=== PATIENT | male | born 1945 | race Caucasian/White ===

== ENCOUNTER 2018-03-27 11:58 | Observation (INO) ==
--- NOTE | 2018-03-27 12:12 | Emergency Department Note ---
Neuro HPI - General Chief Complaint: Stroke Symptoms Stated Complaint: stroke symptoms Time Seen by Provider: 03/27/18 12:10 Source: patient Mode of arrival: ambulatory Limitations: no limitations - History of Present Illness HPI Narrative: 30 minutes ago this patient began to experience a little numbness and incoordination in his left arm and hand. He apparently does take Coumadin for atrial fibrillation although he is in normal sinus rhythm at this time. He has had a very slight left-sided headache which kind of sound sharp like and pinprick lately and comes and goes. He has never had a stroke but is aware of the risk of stroke with atrial fibrillation. On Anticoagulants: Yes - Related Data Home Medications: Home Medications Medication Instructions Recorded Confirmed Cod Liver Oil DAILY 10/17/14 08/27/16 Magnesium Amino Acid Chelate 100 mg PO DAILY 10/17/14 08/27/16 [Magnesium] lactobacillus combination no.9 4 4,000 mmu cells PO QDAY 10/04/15 08/27/16 billion cell capsule bisoprolol fumarate 5 mg tablet 5 mg PO QDAY 03/18/16 08/27/16 Previous Rx's Medication Instructions Recorded ciprofloxacin 500 mg tablet 500 mg PO Q12H #14 tab 08/27/16 hydrochlorothiazide 12.5 mg capsule 12.5 mg PO QDAY #90 cap 11/11/17 hydrocodone 7.5 mg-acetaminophen 1 tab PO QDAY PRN #30 tab 12/09/17 325 mg tablet doxazosin 2 mg tablet 4 mg PO QDAY #180 tab 12/21/17 warfarin 5 mg tablet See Label Instructions .ROUTE 03/17/18 .COMPLEX #100 tab Allergies/Adverse Reactions: Allergies Allergy/AdvReac Type Severity Reaction Status Date / Time Hxllwov-Bxq-Mct Reductase AdvReac Intermediate extreme Verified 03/27/18 12:05 Inhibitor fatigue Iodinated Contrast- Oral and AdvReac Unknown Unknown Verified 03/27/18 12:05 IV Dye [Iodinated Contrast Media - IV Dye] lisinopril AdvReac Unknown Cough Verified 03/27/18 12:05 Review of Systems All systems ED: reviewed and negative except as stated. Past Medical History - Past Medical History [facility] Narrative: Medical History Drug-induced pruritus (Chronic) Vitamin D deficiency (Chronic 10/14/13) History of skin cancer (Chronic) Benign prostatic hypertrophy with lower urinary tract symptoms (LUTS) (Chronic) Palpitations (Chronic) Pain in thoracic spine (Chronic) Osteoarthrosis (Chronic) Hypertension, essential (Chronic) Hernia, inguinal (Chronic 10/31/13) Esophageal reflux (Chronic) Elevated PSA (Chronic 10/31/13) Depression (Chronic) Coronary artery disease (Chronic) Personal history of colonic polyps (Chronic) Bundle branch block (Chronic) Anxiety disorder (Chronic) C. difficile diarrhea (Chronic) Coronary atherosclerosis of [place] coronary artery (Chronic) Benign essential hypertension (Chronic) Mixed hyperlipidemia (Chronic) Benign hypertrophy of prostate (Chronic) Atrial fibrillation (Chronic) Spider bite (Resolved) Past Surgical History S/P ablation of atrial fibrillation (Chronic) History of colonoscopy (Chronic) History of cardiac catheterization (Chronic 12/17/06) History of coronary artery stent placement (Chronic 12/17/06) Status post wrist surgery (Chronic) Family History Father Alcohol abuse Mother Congestive heart failure Cerebrovascular accident (CVA) Cardiac disease Hyperlipidemia Essential hypertension Migraine Osteoporosis Medical history: Reports: atrial fibrillation - Social History smoking status: Never smoker Physical Exam Limitations: no limitations General appearance: alert Head: atraumatic Eye: Present: normal appearance ENT: normal exam Neck: Present: normal inspection Chest: Present: normal inspection Respiratory: Present: normal lung sounds bilaterally Cardiovascular: Present: regular rate, normal rhythm, normal heart sounds Abdominal: Present: soft. Absent: distention, tenderness Neurological: Present: alert Cranial nerves: facial palsy (VII): Normal Cerebellar function: finger to nose: Abnormal Left Motor strength - LUE: 5/5 Motor strength - RUE: 5/5 Motor strength - LLE: 5/5 Motor strength - RLE: 5/5 Upper motor neuron exam: pronator drift: Present on left Psychiatric: Present: normal affect Skin: Present: warm, dry Course Vital Signs Temperature 96.9 F L 03/27/18 12:01 Pulse Rate 72 03/27/18 12:01 Respiratory Rate 12 03/27/18 12:01 Blood Pressure 138/109 03/27/18 12:01 Pulse Oximetry (%) 98 03/27/18 12:01 Temperature 96.9 F L 03/27/18 12:01 Pulse Rate 56 L 03/27/18 13:06 Respiratory Rate 11 L 03/27/18 13:16 Blood Pressure 181/76 03/27/18 13:16 Pulse Oximetry (%) 100 03/27/18 13:06 Neuro Symptoms/Deficit - MDM Narrative Medical decision making narrative: CT of head was negative. His INR was 2.4 which makes him not a candidate for TPA. He also has an allergy to iodine contrast. I discussed this case with the stroke neurologist who felt that we would probably not find any sort of large vessel occlusion on CTA and he thinks it would be safer to admit him and do an MRA later. I discussed the case with Dr. Meadows he will be admitted to the hospital. - Lab Data Lab results reviewed: Yes I reviewed the patient's lab results. Result diagrams: 03/27/18 12:08 03/27/18 12:08 Lab Results 03/27/18 03/27/18 03/27/18 Range/Units 12:08 12:08 12:08 WBC 4.8 (4.5-11.0) K/mcL RBC 4.33 L (4.50-5.90) M/mcL Hgb 13.6 (13.5-16.5) g/dL Hct 41.0 (41.0-55.0) % POC Hct 40.0 L (41.0-55.0) % MCV 94.7 (80.0-100.0) fL MCH 31.4 (26.0-34.0) pg MCHC 33.2 (31.0-36.0) g/dL RDW 12.4 (11.5-14.5) % Plt Count 198 (140-440) K/mcL MPV 6.9 L (7.4-10.4) fL Gran % 58.2 (38.0-78.0) % Lymph % (Auto) 32.6 (15.5-49.0) % [place] % (Auto) 5.5 (1.0-12.0) % Eos % (Auto) 2.9 (0.0-7.0) % Baso % (Auto) 0.8 (0.0-2.0) % Gran # 2.8 (1.8-8.0) K/mcL Lymph # (Auto) 1.6 (1.5-4.8) K/mcL [place] # (Auto) 0.3 (0.1-0.9) K/mcL Eos # (Auto) 0.1 (0.0-0.7) K/mcL Baso # (Auto) 0 (0.0-0.3) K/mcL POC PT (11.9-14.5) sec POC INR (0.9-1.2) POC Sodium 142 (133-145) mmol/L Sodium 140 (133-145) mmol/L POC Potassium 3.3 (3.3-5.1) mmol/L Potassium 3.3 (3.3-5.1) mmol/L POC Chloride 99 (96-108) mmol/L Chloride 101 (96-108) mmol/L Carbon Dioxide 27 (22-30) mmol/L POC Total CO2 28 (22-30) mmol/L Anion Gap 12.0 (8-16) POC BUN 21 (8-23) mg/dl BUN 18 (8-23) mg/dl Creatinine 1.1 (0.7-1.2) mg/dl POC Creatinine 1.0 (0.7-1.2) mg/dl GFR Calculation 66 Glucose 153 H (70-105) mg/dL POC Glucose 153 H (70-105) mg/dL Calcium 9.6 (8.6-10.4) mg/dl POC WB Ioniz Calcium 1.24 (1.16-1.32) mmol/L Total Bilirubin 0.4 (0.0-1.0) mg/dL AST 17 (0-37) U/l ALT 16 (0-40) U/l Alkaline Phosphatase 66 (39-117) U/L Troponin T < 0.01 (0-0.03) ng/ml Total Protein 7.4 (5.9-8.4) gm/dL Albumin 4.3 (3.2-5.2) gm/dL Globulin 3.1 (2.2-3.7) gm/dL Albumin/Globulin Ratio 1.4 (1.0-2.3) 03/27/18 Range/Units 12:48 WBC (4.5-11.0) K/mcL RBC (4.50-5.90) M/mcL Hgb (13.5-16.5) g/dL Hct (41.0-55.0) % POC Hct (41.0-55.0) % MCV (80.0-100.0) fL MCH (26.0-34.0) pg MCHC (31.0-36.0) g/dL RDW (11.5-14.5) % Plt Count (140-440) K/mcL MPV (7.4-10.4) fL Gran % (38.0-78.0) % Lymph % (Auto) (15.5-49.0) % [place] % (Auto) (1.0-12.0) % Eos % (Auto) (0.0-7.0) % Baso % (Auto) (0.0-2.0) % Gran # (1.8-8.0) K/mcL Lymph # (Auto) (1.5-4.8) K/mcL [place] # (Auto) (0.1-0.9) K/mcL Eos # (Auto) (0.0-0.7) K/mcL Baso # (Auto) (0.0-0.3) K/mcL POC PT 27.8 H (11.9-14.5) sec POC INR 2.4 H (0.9-1.2) POC Sodium (133-145) mmol/L Sodium (133-145) mmol/L POC Potassium (3.3-5.1) mmol/L Potassium (3.3-5.1) mmol/L POC Chloride (96-108) mmol/L Chloride (96-108) mmol/L Carbon Dioxide (22-30) mmol/L POC Total CO2 (22-30) mmol/L Anion Gap (8-16) POC BUN (8-23) mg/dl BUN (8-23) mg/dl Creatinine (0.7-1.2) mg/dl POC Creatinine (0.7-1.2) mg/dl GFR Calculation Glucose (70-105) mg/dL POC Glucose (70-105) mg/dL Calcium (8.6-10.4) mg/dl POC WB Ioniz Calcium (1.16-1.32) mmol/L Total Bilirubin (0.0-1.0) mg/dL AST (0-37) U/l ALT (0-40) U/l Alkaline Phosphatase (39-117) U/L Troponin T (0-0.03) ng/ml Total Protein (5.9-8.4) gm/dL Albumin (3.2-5.2) gm/dL Globulin (2.2-3.7) gm/dL Albumin/Globulin Ratio (1.0-2.3) - Radiology Data Radiology results reviewed: Yes I reviewed the patient's radiology results. Disposition Pt seen by [employer] NET SOFTWARE DEVELOPER/PA only: No Clinical Impression: CVA (cerebral vascular accident) Disposition: Xfer As Inpt ([facility]) Condition: Good Referrals: Epi Mary PA-C [Primary Care Provider] - Time of Disposition: 13:33
--- NOTE | 2018-03-27 12:19 | Cat Scan Report ---
CLINICAL INFORMATION: Left-sided weakness COMPARISON: None. TECHNIQUE: Axial noncontrast-enhanced images through the brain. FINDINGS: No acute intracranial hemorrhage. No focal intra-axial hematoma. No attenuation abnormality or localized mass effect. No midline shift. Brain volume is within normal limits for age. No acute hydrocephalus. Brainstem and cerebellum are negative. No extra-axial, intracranial abnormality. No subdural hematoma. No subarachnoid hemorrhage. No calvarial lesions. No lytic lesion. No fracture. Temporal bones are negative. IMPRESSION: Negative noncontrast enhanced brain CT scan The exam was performed using radiation dose optimization techniques including, but not limited to, automated exposure control, adjustment of the mA and/or kV according to patient size and use of iterative reconstruction technique. Interpreted and Authenticated by: Rancho Oliveros 03/27/18
[2018-03-27 12:40] LABS: Basophils # (Auto) 0 K/mcL (0.0-0.3); Basophils % (Auto) 0.8 % (0.0-2.0); Eosinophils # (Auto) 0.1 K/mcL (0.0-0.7); Eosinophils % (Auto) 2.9 % (0.0-7.0); Granulocytes % (Auto) 58.2 % (38.0-78.0); Lymphocytes # (Auto) 1.6 K/mcL (1.5-4.8); Lymphocytes % (Auto) 32.6 % (15.5-49.0); Mean Cell Volume 94.7 fL (80.0-100.0); Mean Corpuscular HGB Conc 33.2 g/dL (31.0-36.0); Monocytes # (Auto) 0.3 K/mcL (0.1-0.9); Monocytes % (Auto) 5.5 % (1.0-12.0); Platelet Count 198 K/mcL (140-440); RBC 4.33 M/mcL (4.50-5.90); Red Cell Distribution Width 12.4 % (11.5-14.5)
[2018-03-27 13:05] LABS: ALT/SGPT 16 U/l (0-40); Albumin 4.3 gm/dL (3.2-5.2); Albumin/Globulin Ratio 1.4 (1.0-2.3); Alkaline Phosphatase 66 U/L (39-117); Blood Urea Nitrogen 18 mg/dl (8-23)
[2018-03-27] MEDS ORDERED: LABETALOL HCL 20 MG/4 ML SYRINGE IV ONE (13:10)
[2018-03-27 13:54] LABS: Appearance,Urine CLEAR; Bacteria,Urine 0 /hpf (0); Bilirubin,Urine NEG (NEG); Color,Urine STRAW; Glucose,Urine (UA) NEGATIVE (NEG); Leukocyte Esterase,Urine NEG /uL (NEG); Protein,Urine NEG (NEG); Urine Blood 0.2 mg/dL (<0.03); Urine RBC 17 /hpf (0-1); Urine Squamous Epithelial Cell 0 /hpf (0-4); Urine WBC 1 /hpf (0-4); Urobilinogen,Urine NEG (NEG)
--- NOTE | 2018-03-27 14:35 | Internal Med History&Physical ---
Medical - H&P: HPI Patient information: Note initiated : 03/27/18 at 2:30 pm Service Date, if different from initiated Date: [] Patient: Jesus Victor 72 y/o M admitted on for stroke symptoms. Chief Complaint: [] History of present illness: Mr. Victor is a 72 year old M Presents to the ER with abnormal feeling in his left arm. Patient woke up around 7 he says at that time he noticed that his arm felt strange. He says it felt like when a limb is asleep. 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 His left leg was fine no issues there. He denied any numbness or tingling anywhere else in his body. Denies any weakness anywhere else in his body. He denied speech abnormalities or visual numbness or drooping or slurring. When asked about vision changes he did note that first thing in the morning when he looked up in the left upper quadrant that there seemed to be some distortion which does not appear to be present at this time. Denies gait abnormalities. Patient is on warfarin for atrial fibrillation. He does have a history of CAD with a stent in 2007, he is intolerant of statins, he is on caudal currently. In the ER is found to be hypertensive, CT brain was unremarkable for acute pathology. EKG with sinus rhythm Case was discussed with the stroke neurologist Baldev. Recommendations were no TPA no transfer and to admit and obtain MRA. Review of Systems: Pertinent positives as above. Denies headache/fever/chills/nausea/vomiting/ chest or abdominal pain/cough/dyspnea/diarrhea. Remaining 10 point review of systems reviewed negative Medical - H&P: PMH Medical history: Medical History Drug-induced pruritus (Chronic) Vitamin D deficiency (Chronic 10/14/13) History of skin cancer (Chronic) Benign prostatic hypertrophy with lower urinary tract symptoms (LUTS) (Chronic) Palpitations (Chronic) Pain in thoracic spine (Chronic) Osteoarthrosis (Chronic) Hypertension, essential (Chronic) Hernia, inguinal (Chronic 10/31/13) Esophageal reflux (Chronic) Elevated PSA (Chronic 10/31/13) Depression (Chronic) Coronary artery disease (Chronic) Personal history of colonic polyps (Chronic) Bundle branch block (Chronic) Anxiety disorder (Chronic) C. difficile diarrhea (Chronic) Coronary atherosclerosis of [place] coronary artery (Chronic) Benign essential hypertension (Chronic) Mixed hyperlipidemia (Chronic) Benign hypertrophy of prostate (Chronic) Atrial fibrillation (Chronic) Spider bite (Resolved) Past Surgical History S/P ablation of atrial fibrillation (Chronic) History of colonoscopy (Chronic) History of cardiac catheterization (Chronic 12/17/06) History of coronary artery stent placement (Chronic 12/17/06) Status post wrist surgery (Chronic) Family History Father Alcohol abuse Mother Congestive heart failure Cerebrovascular accident (CVA) Cardiac disease Hyperlipidemia Essential hypertension Migraine Osteoporosis - Social History smoking status: Never smoker Rare alcohol lives at home with family 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 work 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 [employer] Medical - H&P: Meds Home Medications Medication Instructions Recorded Confirmed Type bisoprolol fumarate 5 mg tablet 5 mg PO QDAY 03/18/16 03/27/18 History hydrocodone 7.5 mg-acetaminophen 1 tab PO QDAY PRN #30 tab 12/09/17 03/27/18 Rx 325 mg tablet warfarin 5 mg tablet See Label Instructions .ROUTE 03/17/18 03/27/18 Rx .COMPLEX #100 tab Doxazosin Mesylate [Cardura] 8 mg PO QDAY 03/27/18 03/27/18 History Allergies Allergy/AdvReac Type Severity Reaction Status Date / Time Qtqqact-Qmi-Szx Reductase AdvReac Intermediate extreme Verified 03/27/18 12:05 Inhibitor fatigue Iodinated Contrast- Oral and AdvReac Unknown Unknown Verified 03/27/18 12:05 IV Dye [Iodinated Contrast Media - IV Dye] lisinopril AdvReac Unknown Cough Verified 03/27/18 12:05 Medical - H&P: Exam - Constitutional Vitals: Temp Pulse Resp BP Pulse Ox 96.9 F L 52 L 13 177/81 97 03/27/18 12:01 03/27/18 14:16 03/27/18 14:16 03/27/18 14:16 03/27/18 14:16 Exam: General: Alert, Awake, No acute Distress Eyes/N/T: EOMI, PEERL, Head/Neck: neck supple, normocephalic atraumatic CV: RRR, No murmurs, normal s1/s2 Pulm: Clear b/l, no wheezing/rhonchi/rales Abd: soft, nontender, +BS x4 Ext: no clubbing/cyanosis/edema Neuro: A&O, sensations intact b/l, strength appears symmetrical b/l upper/ lower. dysmetria of left UE. left pronator drift Skin: warm/dry Medical - H&P: Reslt - Labs CBC & Chem 7: 03/27/18 12:08 03/27/18 12:08 Labs: Short CBC 03/27/18 Range/Units 12:08 WBC 4.8 (4.5-11.0) K/mcL Hgb 13.6 (13.5-16.5) g/dL Hct 41.0 (41.0-55.0) % Plt Count 198 (140-440) K/mcL BMP 03/27/18 12:08 Sodium 140 Potassium 3.3 Chloride 101 Carbon Dioxide 27 BUN 18 Creatinine 1.1 Glucose 153 H Calcium 9.6 Cardiac Enzymes 03/27/18 Range/Units 12:08 Troponin T < 0.01 (0-0.03) ng/ml Liver Function 03/27/18 Range/Units 12:08 Total Bilirubin 0.4 (0.0-1.0) mg/dL AST 17 (0-37) U/l ALT 16 (0-40) U/l Alkaline Phosphatase 66 (39-117) U/L Albumin 4.3 (3.2-5.2) gm/dL Urine 03/27/18 Range/Units 13:07 Urine Color Straw Urine Appearance Clear Urine pH 6.0 (5.0-9.0) Ur Specific [place] 1.010 (1.000-1.035) Urine Protein Neg (NEG) mg/dL Urine Glucose (UA) Negative (NEG) mg/dL - Impressions EKG with normal sinus rhythm CT brain no acute abnormalities Medical - H&P: A/P - Narrative A/P Narrative: A: *Stroke-like symptoms w/LUE dysmetria concerning for cerebellar CVA -ABCD=4 *PAF: s/p ablation -on warfarin and BB *CAD w/stent: intolerant of statins, on fish oil *HTN * P: -Permissive hypertension first 24 hours -IV fluid hydration -Aspirin/Fibrate -lipid panel -MRA head/neck & Echo pending -pt/ot/st - -ppx: wafarin per pharm
[2018-03-27] MEDS ORDERED: ONDANSETRON 4 MG/2 ML VIAL IV PRN (15:41)
[2018-03-27] MEDS ORDERED: hydrALAZINE 20 MG/ML VIAL IV PRN (15:41)
[2018-03-27] MEDS ORDERED: PROMETHAZINE 25 MG TABLET PO PRN (15:41)
[2018-03-27] MEDS ORDERED: ASPIRIN 325 MG ENTERIC COATED TABLET PO ONE (15:41)
[2018-03-27] MEDS ORDERED: WARFARIN 5 MG TABLET PO SCH (15:41)
[2018-03-27] MEDS ORDERED: PROCHLORPERAZINE 25 MG SUPP.RECT PR PRN (15:41)
[2018-03-27] MEDS ORDERED: HYDROCODONE/APAP 7.5/325MG TABLET PO PRN (15:48)
[2018-03-27 16:07] LABS: HDL Cholesterol 58 mg/dl (>40); LDL Cholesterol,Calculated 157 mg/dl (SEE CHART)
[2018-03-27] MEDS ORDERED: GADOBENATE DIMEGLUMINE 20 ML/VIAL IV ONE (16:18)
--- NOTE | 2018-03-27 16:35 | Magnetic Resonance Report ---
CLINICAL INFORMATION: Left arm weakness TECHNIQUE: Diffusion weighted axial images. Routine MRA of the [place] COMPARISON: Brain CT scan dated 03/27/2018 FINDINGS: There are foci of restricted diffusion in the right premotor gyrus and subcortical white matter as well as the right centrum semiovale. This is in the posterior right frontal lobe, anterior to the central sulcus. There is associated ADC abnormality consistent with acute stroke. Distal cervical, petrous, cavernous, supraclinoid segments of the right internal carotid artery are normal. A1 segment of the right anterior cerebral artery and M1 segment of the right middle cerebral artery are normal. No detectable intracranial stenosis or occluded branch. Distal cervical, petrous, cavernous, supraclinoid segments of the left internal carotid artery are normal. A1 segment of the left anterior cerebral artery and M1 segment of the left middle cerebral artery are normal. Intracranial vertebral arteries and basilar artery are normal. Posterior cerebral arteries and superior cerebellar arteries are negative. Right posterior communicating artery is a large vessel. Left posterior communicating artery is not visualized. No intracranial aneurysm or arteriovenous malformation Diffusion weighted images are consistent with small embolic infarctions. Source of emboli is not certain based upon MRA. Cardiac source of emboli should be excluded and echocardiography is recommended. IMPRESSION: Negative MRA of the [place] Interpreted and Authenticated by: Rancho Oliveros 03/27/18
--- NOTE | 2018-03-27 16:44 | Magnetic Resonance Report ---
CLINICAL INFORMATION: Right-sided embolic stroke TECHNIQUE: Postcontrast enhanced MRA of the cervical great vessels. COMPARISON: None. FINDINGS: Origin of the left subclavian artery, left vertebral artery, left common carotid artery, innominate artery, right common carotid artery, right subclavian artery, right vertebral artery are normal. No origin stenosis. Common carotid arteries and cervical internal carotid arteries are negative. No significant luminal irregularity. No intraluminal filling defects. No stenosis. Cervical vertebral arteries are negative. No stenosis or occlusion IMPRESSION: Negative carotid MRA Interpreted and Authenticated by: Rancho Oliveros 03/27/18
[2018-03-27] MEDS: 0.9 % SODIUM CHLORIDE 1,000 ML IV SCH (17:55)
[2018-03-27] MEDS: FAMOTIDINE 20 MG TABLET PO SCH (20:49)
[2018-03-27] MEDS: 0.9 % SODIUM CHLORIDE 10 ML SYRINGE IV SCH (20:59)
[2018-03-28] MEDS: 0.9 % SODIUM CHLORIDE 1,000 ML IV SCH (03:42)
[2018-03-28] MEDS: 0.9 % SODIUM CHLORIDE 10 ML SYRINGE IV SCH ×3 (05:12→20:41)
[2018-03-28 06:15] LABS: ALT/SGPT 13 U/l (0-40); Albumin 3.7 gm/dL (3.2-5.2); Albumin/Globulin Ratio 1.5 (1.0-2.3); Alkaline Phosphatase 53 U/L (39-117); Bilirubin,Direct < 0.2 mg/dL (0.0-0.3); Blood Urea Nitrogen 17 mg/dl (8-23); Gamma Glutamyl Transpeptidase 6 U/L (8-61); Uric Acid 6.1 mg/dL (2.5-8.0)
--- NOTE | 2018-03-28 06:55 | Internal Med Progress Note ---
Medical - PN: Subj Patient information: Note initiated : 03/28/18 at 6:50 am Service Date, if different from initiated Date: [] Patient: Jesus Victor 72 y/o M admitted on 03/27/18 for stroke symptoms. Chief Complaint: [] Interval history: Mr. Victor is a 72 year old M Presents to the ER with abnormal feeling in his left arm. Patient woke up around 7 he says at that time he noticed that his arm felt strange. He says it felt like when a limb is asleep. 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 His left leg was fine no issues there. He denied any numbness or tingling anywhere else in his body. Denies any weakness anywhere else in his body. He denied speech abnormalities or visual numbness or drooping or slurring. When asked about vision changes he did note that first thing in the morning when he looked up in the left upper quadrant that there seemed to be some distortion which does not appear to be present at this time. Denies gait abnormalities. Patient is on warfarin for atrial fibrillation. He does have a history of CAD with a stent in 2007, he is intolerant of statins, he is on caudal currently. In the ER is found to be hypertensive, CT brain was unremarkable for acute pathology. EKG with sinus rhythm Case was discussed with the stroke neurologist Baldev. Recommendations were no TPA no transfer and to admit and obtain MRA. 03/27 Had a little bit of a headache earlier. Feels like his coordination in his left arm is improving. No new complaints, no overnight events. Review of Systems: denies fever/chills/nausea/vomiting/chest or abdominal pain/cough/dyspnea/ diarrhea. Otherwise see above. - Constitutional Vitals: Vital Signs Temp Pulse Resp BP Pulse Ox 98.6 F 52 L 14 159/88 98 03/27/18 15:43 03/27/18 15:39 03/27/18 15:43 03/28/18 04:00 03/27/18 15:43 Period Temp Pulse Resp BP Sys/Jaquez Pulse Ox Last 24 Hr 96.9 F-98.6 F 52-72 - 138-211/76-109 93-100 Intake and Output 03/27/18 03/28/1818 21:59 05:59 13:59 Intake Total 360 / 360 1000 / 1000 Output Total 400 / 400 1300 / 1300 Balance -40 / -40 -300 / -300 Weight 95.254 kg Intake & Output: Intake & Output 03/27/18 03/28/18 03/28/18 21:59 05:59 13:59 Intake Total 360 / 360 1000 / 1000 Output Total 400 / 400 1300 / 1300 Balance -40 / -40 -300 / -300 Weight 95.254 kg Intake: IV 1000 / 1000 Sodium Chloride 0.9% 1,000 ml @ 1000 / 1000 100 mls/hr IV .Q10H YOANNA Rx#: [id number] Oral 360 / 360 Output: Void Amount 400 / 400 1300 / 1300 Other: Meal Dinner Percent of Meal Consumed 100% Urine Appearance Clear Urine Color Dark Yellow Exam: General: Alert, Awake, No acute Distress Eyes/N/T: EOMI, Head/Neck: neck supple, normocephalic atraumatic CV: RRR, No murmurs, normal s1/s2 Pulm: Clear b/l, no wheezing/rhonchi/rales Abd: soft, nontender, +BS x4 Ext: no clubbing/cyanosis/edema Neuro: A&O, sensations intact b/l, strength appears symmetrical b/l upper/ lower. dysmetria of left UE. Skin: warm/dry Medical - PN: Obj Da - Labs CBC & Chem 7: 03/27/18 12:08 03/28/18 04:37 Labs: Abnormal Lab Results 03/28/18 03/28/18 03/27/18 04:37 04:36 15:41 RBC POC Hct MPV POC PT PT 25.6 H POC INR INR 2.4 H APTT Anion Gap 7.0 L Glucose POC Glucose Phosphorus 2.6 L GGT 6 L Triglycerides 161 H Cholesterol 247 H LDL Cholesterol, Calc 157 H Non-HDL Cholesterol 189 H Urine Occult Blood Urine RBC 03/27/18 03/27/18 03/27/18 13:07 12:48 12:08 RBC POC Hct 40.0 L MPV POC PT 27.8 H PT POC INR 2.4 H INR APTT 45 H Anion Gap Glucose 153 H POC Glucose 153 H Phosphorus GGT Triglycerides Cholesterol LDL Cholesterol, Calc Non-HDL Cholesterol Urine Occult Blood 0.2 A Urine RBC 17 H 12/22/18 12:08 RBC 4.33 L POC Hct MPV 6.9 L POC PT PT POC INR INR APTT Anion Gap Glucose POC Glucose Phosphorus GGT Triglycerides Cholesterol LDL Cholesterol, Calc Non-HDL Cholesterol Urine Occult Blood Urine RBC Meds: Medications Hydrocodone Bitart/Acetaminophen ([place] 7.5/325mg) 1 tab PO DAILYP PRN PRN Reason: Pain Aspirin (Ecotrin) 81 mg PO DAILY [facility] Famotidine (Pepcid) 20 mg PO BID [facility] Last Admin: 03/27/18 20:49 Dose: 20 mg Fenofibrate (Antara) 129 mg PO DAILY [facility] Hydralazine HCl (Apresoline) 0 mg IV Q3HP PRN PRN Reason: Hypertension Sodium Chloride (Sodium Chloride 0.9%) 1,000 mls @ 100 mls/hr IV .Q10H [facility] Stop: 03/28/18 11:40 Last Admin: 03/28/18 03:42 Dose: 100 mls/hr Ondansetron HCl (Zofran) 4 mg IV Q4HP PRN PRN Reason: Nausea And Vomiting Prochlorperazine Maleate (Compazine) 12.5 mg NE Q12HP PRN PRN Reason: Nausea And Vomiting Promethazine HCl (Phenergan) 12.5 mg PO Q6HP PRN PRN Reason: Nausea And Vomiting Sodium Chloride (Saline Flush) 10 ml IV Q8 [facility] Last Admin: 03/28/18 05:12 Dose: Not Given Medical - PN: A/P - Time Spent With Patient Total time spent is greater than 50% in coordination of care (as documented) at patient's floor/unit and/or counseling patient: - Narrative A/P Narrative: A: *CVA (small emboli right posterior of frontal lobe) w/LUE dysmetria: -ABCD=4 *PAF: s/p ablation -on warfarin and BB *CAD w/stent: intolerant of statins, on fish oil *HTN: *BPH: on doxazosin P: -Permissive hypertension first 24 hours -Discussed the case with the stroke neurologist Dr. Montes who recommended switching warfarin to a NOAC, such as Apixaban. Will transition to Apixaban. - Echo pending -fibrate -pt/ot/st -start home BB in AM -ppx: transition to eliquis when INR closer to 2 Medical - PN: Qual - Stroke Onset of Symptoms Date: 03/27/18 Onset of Symptoms Time: 08:00 Symptom Onset Unknown: No - VTE Deep Vein Thrombosis/Pulmonary Embolism Present on Admission: No
[2018-03-28] MEDS: FAMOTIDINE 20 MG TABLET PO SCH ×2 (08:54→20:41)
[2018-03-28] MEDS: FENOFIBRATE 43 MG CAPSULE PO SCH (08:55)
[2018-03-28] MEDS ORDERED: ASPIRIN 325 MG ENTERIC COATED TABLET PO SCH (09:00)
[2018-03-28] MEDS ORDERED: ASPIRIN 81 MG TAB.CHEW PO SCH (09:00)
[2018-03-28] MEDS ORDERED: LABETALOL 5 MG/ML ML IV PRN (10:00)
[2018-03-28] MEDS ORDERED: DOXAZOSIN 4 MG TABLET PO SCH ×2 (12:48→13:00)
[2018-03-28] MEDS: DOXAZOSIN 4 MG TABLET PO SCH (20:40)
[2018-03-29] MEDS: DOXAZOSIN 4 MG TABLET PO SCH (08:07)
[2018-03-29] MEDS: 0.9 % SODIUM CHLORIDE 10 ML SYRINGE IV SCH (08:08)
[2018-03-29] MEDS: FENOFIBRATE 43 MG CAPSULE PO SCH (08:08)
[2018-03-29] MEDS: FAMOTIDINE 20 MG TABLET PO SCH (08:08)
[2018-03-29 08:54] LABS: ALT/SGPT 13 U/l (0-40); Albumin 3.9 gm/dL (3.2-5.2); Albumin/Globulin Ratio 1.4 (1.0-2.3); Alkaline Phosphatase 61 U/L (39-117); Bilirubin,Direct < 0.2 mg/dL (0.0-0.3); Blood Urea Nitrogen 19 mg/dl (8-23); Gamma Glutamyl Transpeptidase 7 U/L (8-61); Uric Acid 6.2 mg/dL (2.5-8.0)
[2018-03-29] MEDS ORDERED: DOXAZOSIN 4 MG TABLET PO SCH (09:00)
[2018-03-29] MEDS ORDERED: WARFARIN 10 MG TABLET PO ONE (11:32)
--- NOTE | 2018-03-29 11:39 | Discharge Summary ---
Medical - DS: Prov Patient information: Note initiated : 03/29/18 at 11:35 am Service Date, if different from initiated Date: [] Patient: Jesus Victor 72 y/o M admitted on 03/27/18 for stroke symptoms. Chief Complaint: [] Date of admission: 03/27/18 15:39 Discharge date: 03/29/18 Primary care physician: Epi Mary Consults: 03/27/18 Consult to Physician [CONS] Stat Comment: Consulting Provider: Jann Meadows Reason For Exam: Physician to Consult Discharging clinician: Carlito Alegre Medical - DS: Meds - Discharge Medications Prescriptions: Atorvastatin [Lipitor] 20 mg PO HS #30 tablet Warfarin [Coumadin] See Label Instructions PO .COMPLEX #60 tab Active and Home Medications: Home Medications bisoprolol fumarate 5 mg tablet 5 mg PO QDAY 03/18/16 [History Confirmed Last Taken Unknown] hydrocodone 7.5 mg-acetaminophen 325 mg tablet 1 tab PO QDAY PRN #30 tab [Rx Confirmed 03/27/18 Last Taken Unknown] warfarin 5 mg tablet See Label Instructions .ROUTE .COMPLEX #100 tab 03/17/18 [ Rx Confirmed 03/27/18 Last Taken Unknown] Doxazosin Mesylate [Cardura] 8 mg PO QDAY 03/27/18 [History Confirmed 03/27/18 Last Taken Unknown] Apixaban [Eliquis] 5 mg PO BID #60 tab 03/29/18 [Rx Last Taken Unknown] Medical - DS: Hosp Hospital course: Mr. Victor is a 72 year old M who presented to the ER with abnormal feeling in his left arm. Patient woke up around 7 he says at that time he noticed that his arm felt strange. He says it felt like when a limb is asleep. 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 His left leg was fine no issues there. He denied any numbness or tingling anywhere else in his body. Denies any weakness anywhere else in his body. He denied speech abnormalities or visual numbness or drooping or slurring. When asked about vision changes he did note that first thing in the morning when he looked up in the left upper quadrant that there seemed to be some distortion which does not appear to be present at this time. Denies gait abnormalities. Patient is on warfarin for atrial fibrillation. He does have a history of CAD with a stent in 2007, he is intolerant of statins as per him In the ER is found to be hypertensive, CT brain was unremarkable for acute pathology. EKG with sinus rhythm Case was discussed with the stroke neurologist Baldev. Recommendations were no TPA no transfer and to admit and obtain MRA. CVA- Patient admitted to the hospital for management of CVA, CT head was negative, MRA head and neck negative Echo done shows normal left ventricular size and function. The patient has Afib and is on Coumadin , INR was therapeutic on presentation. The case was discussed with the stroke neurologist Dr. Montes who recommended switching warfarin to a NOAC, such as Apixaban. The patient notes that he will not be able to afford apixaban at this time, we verified that it would cost him around 400 dollars a month to get this medication. He can get this medication at a much cheaper rate from the [place] [facility]. The patient will be switched back to Coumadin for now, till he is able to get a prescription for Eliquis from the [place] center, I have advised him to follow up with his PCP for obtaining and coordinating the prescription. The patient at the time of discharge was stable, tolerating po diet well, and ambulating by self, to my exam had no motor neurological deficits. The patient cholesterol his high, and he was advised to start statin, he has the medications with him. He felt that these drugs caused aches, he is willing to try a lower dosage or alternate day therapy to see if this helps. Discharge diagnosis: CVA - Time Spent with Patient Total time spent providing and/or coordinating discharge services: Greater than 30 minutes Medical - DS: Exam - Constitutional Vitals: Vital Signs Temp Pulse Resp BP BP Pulse Ox 03/29/18 08:26 152/66 03/29/18 06:50 97.5 F 67 16 171/101 96 03/29/18 03:51 97.8 F 62 18 152/81 96 03/29/18 00:00 97.4 F 73 16 136/72 94 03/28/18 19:46 94 03/28/18 19:40 98.5 F 70 18 129/73 94 03/28/18 15:45 98.5 F 20 177/86 96 03/28/18 12:05 97.1 F 18 165/98 165/98 98 Intake and Output 03/28/18 03/29/18 03/29/18 21:59 05:59 13:59 Intake Total 220 / 220 150 / 150 240 / 240 Output Total 400 / 400 1275 / 1275 275 / 275 Balance -180 / -180 -1125 / -1125 -35 / -35 Intake: Oral 220 / 220 150 / 150 240 / 240 Output: Void Amount 400 / 400 1275 / 1275 275 / 275 Other: Meal Dinner Breakfast Percent of Meal Consumed 100% 75% Feeding Ability Independent Independent Urine Appearance Clear Clear Urine Color Dark Yellow Pale # Voids 5 1 Weight 208 lb Additional comments: Constitutional; Afebrile, cooperative, alert, not in distress. Eyes- No icterus, , No periorbital swelling Ears- Ext ear normal, hearing normal to conversation. Neck- Midline trachea, supple Respiratory system: Air Entry equal on both sides, No crackles or wheezing, no rhonchi. CVS- Rate rhythm regular, S1,S2 heard, no gallop, no rub. Abdomen- Soft nontender abdomen, no organomegaly, no tenderness, no guarding or rigidity, [place]- AOOx3, moving all extremities, no gross focal deficit noted. Medical - DS: Data Labs on day of discharge: Labs from last 24 hours 03/29/18 03/29/18 07:44 03:57 PT 23.7 H INR 2.1 H Sodium 140 Potassium 3.8 Chloride 104 Carbon Dioxide 28 Anion Gap 8.0 BUN 19 Creatinine 1.2 GFR Calculation 60 Glucose 101 Uric Acid 6.2 Calcium 9.3 Phosphorus 2.4 L Magnesium 2.1 Total Bilirubin 0.4 Direct Bilirubin < 0.2 GGT 7 L AST 14 ALT 13 Alkaline Phosphatase 61 Lactate Dehydrogenase 163 Total Protein 6.7 Albumin 3.9 Globulin 2.8 Albumin/Globulin Ratio 1.4 Triglycerides 119 Medical - DS: A/P - Patient/Caregiver Discharge Instructions Activity: increase activity as tolerated Diet: Cardiac Additional Instructions: Please take Coumadin as per your previous protocol Follow up with INR check in 3-4 days Follow up with PCP in 3-4 days You need to transition from Coumadin to eliquis. Please talk to your primary care provider to help you coordinate this transition, since [facility] Go to the ER if worsening condition, chest pain, shortness of breath or any other acute concern. Prescriptions: Apixaban [Eliquis] 5 mg PO BID #60 tab - Follow up Plan Follow up with: Epi Mary PA-C [Primary Care Provider] - Disposition: Home, Self-Care Prognosis: Good Rehab Potential: Good I certify that the patient requires SNF services: No Overall status at discharge: patient is progressing back to baseline Medical - DS: Qual - VTE Deep Vein Thrombosis/Pulmonary Embolism Present on Admission: No
== END 2018-03-29 14:20 | disposition home or self-care (01) ==
LOC: ED 11:58 → ICU 15:39 → INTOOBSV 15:39 → ICU 15:43
PROVIDERS: ADMIT Internal Medicine; ATTEND Internal Medicine
CPT/HCPCS: 80047; 85014; 97161; 99217; 99220; 99224; A9577; G0378; G8978; G8979; J7030